=== PATIENT | female | born 1985 | race Caucasian/White ===

== ENCOUNTER 2017-04-11 07:46 | Day surgery (SDC) | payer BC ==
[~2017-04-11 07:46] MED LIST: Lactated Ringers 1,000 ML IV SCH; ceFAZolin 1 GM in Premix Bag 1 BAG IV ONE
[2017-04-11] MEDS ORDERED: fentaNYL 100 MCG/2 ML SDV ONE (08:32)
[2017-04-11] MEDS ORDERED: Propofol 200 MG/20 ML SDV ONE (08:32)
[2017-04-11] MEDS ORDERED: Lidocaine 2% 5 ML SDV ONE (08:32)
[2017-04-11] MEDS ORDERED: Midazolam 1 MG/ML 2 ML SDV ONE (08:32)
--- NOTE | 2017-04-11 09:04 | PCM.PREANE ---
Preanesthetic Assessment - Procedure Proposed Procedure: Cystoscopy with ureterocoele incision. - Anesthesia/Transfusion/Family Hx Anesthesia History: Prior Anesthesia Without Reaction Family History of Anesthesia Reaction: No Transfusion History: No Prior Transfusion(s) Intubation History: Unknown - Review of Systems General: No Symptoms Pulmonary: No Symptoms Cardiovascular: No Symptoms Gastrointestinal: No symptoms Neurological: No Symptoms Other: Reports: None - Physical Assessment O2 Sat by Pulse Oximetry: 99 Respiratory Rate: 16 Vital Signs: Last Vital Signs Temp 98.6 F 04/11/17 08:15 Pulse 58 L 04/11/17 08:15 Resp 16 04/11/17 08:15 BP 116/59 L 04/11/17 08:15 Pulse Ox 99 04/11/17 08:15 Height: 5 ft 9 in Weight: 173 lb ASA Class: 1 Mental Status: Alert & Oriented x3 Airway Class: Mallampati = 1 Dentition: Reports: Normal Dentition Thyro-Mental Finger Breadths: 3 Mouth Opening Finger Breadths: 3 ROM/Head Extension: Full Lungs: Clear to auscultation, Normal respiratory effort Cardiovascular: Regular Rate, Regular Rhythm, No Murmurs - Lab Values: Laboratory Last Values Urine HCG, Qual NEGATIVE (NEGATIVE) 04/11/17 07:48 - Allergies Allergies/Adverse Reactions: Allergies Allergy/AdvReac Type Severity Reaction Status Date / Time clomiphene [From Clomid] Allergy Hives Verified 04/10/17 15:53 - Blood Blood Available: No Product(s) Available: None - Anesthesia Plan Pre-Op Medication Ordered: None - Acknowledgements Anesthesia Type Planned: General Anesthesia (probable LMA) Pt an Appropriate Candidate for the Planned Anesthesia: Yes Alternatives and Risks of Anesthesia Discussed w Pt/Guardian: Yes Pt/Guardian Understands and Agrees with Anesthesia Plan: Yes PreAnesthesia Questionnaire HEENT History: Reports: None Cardiovascular History: Reports: None Respiratory History: Reports: None Gastrointestinal History: Reports: None Genitourinary History: Reports: None 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 [No Known Home Meds] 04/10/17 [History] - CURRENT (IN HOUSE) MEDS Current Meds: Current Medications Lactated Ringer's (Ringers, Lactated) 1,000 mls @ 100 mls/hr IV ASDIRECTED JAX Last Admin: 04/11/17 08:24 Dose: 100 mls/hr Discontinued Medications Fentanyl (Sublimaze) Confirm Administered Dose 100 mcg .ROUTE .STK-MED ONE Stop: 04/11/17 08:33 Cefazolin Sodium/Dextrose 1 gm (/ Premix) 50 mls @ 100 mls/hr IV ONETIME ONE Stop: 04/11/17 00:30 Lidocaine (Xylocaine-Mpf 2%) Confirm Administered Dose 5 ml .ROUTE .STK-MED ONE Stop: 04/11/17 08:33 Midazolam HCl (Versed 1 Mg/Ml) Confirm Administered Dose 2 mg .ROUTE .STK-MED ONE Stop: 04/11/17 08:33 Propofol (Diprivan 20 Ml) Confirm Administered Dose 200 mg .ROUTE .STK-MED ONE Stop: 04/11/17 08:33
[2017-04-11] MEDS ORDERED: Iopamidol 408 MG/ML 50 ML SDV ONE (09:30)
[2017-04-11] MEDS ORDERED: ceFAZolin 1 GM Vial ONE (09:43)
[2017-04-11] MEDS ORDERED: Sodium Chloride 0.9% 20 ML ONE (09:43)
[2017-04-11] MEDS ORDERED: fentaNYL 100 MCG/2 ML SDV IVPUSH PRN (09:46)
[2017-04-11] MEDS ORDERED: Ketorolac 30 MG/ML SDV ONE (10:11)
[2017-04-11] MEDS ORDERED: Ondansetron 4 MG/2 ML SDV ONE (10:11)
--- NOTE | 2017-04-11 10:47 | PCM.POSTAN ---
POST ANESTHESIA ASSESSMENT - MENTAL STATUS Mental Status: alert, oriented - RESPIRATORY Respiratory Status: respiratory rate WNL, airway patent, O2 saturation stable - CARDIOVASCULAR CV Status: pulse rate WNL, blood pressure stable - GASTROINTESTINAL GI Status: no symptoms - PAIN Pain Score: 0 - POST OP HYDRATION Hydration Status: adequate & stable
[2017-04-11 11:39] VITALS: BP 109/59
--- NOTE | 2017-04-11 11:54 | PCM48HPAN ---
Post Anesthesia Note - EVALUATION WITHIN 48HRS OF ANESTHETIC Vital Signs in Normal Range: Yes Patient Participated in Evaluation: Yes Respiratory Function Stable: Yes Airway Patent: Yes Cardiovascular Function Stable: Yes Hydration Status Stable: Yes Pain Control Satisfactory: Yes Nausea and Vomiting Control Satisfactory: Yes Mental Status Recovered: Yes
--- NOTE | 2017-04-11 12:13 | OR ---
SURGEON: Fei Aponte M.D. DATE OF PROCEDURE: 04/11/2017 PREOPERATIVE DIAGNOSES: Left hydroureter, hydronephrosis, and a large ureterocele. POSTOPERATIVE DIAGNOSES: Left hydroureter, hydronephrosis, and a large ureterocele. OPERATION: Cystoscopy and ureteral meatotomy. DESCRIPTION OF PROCEDURE: The patient was given general anesthesia, placed in dorsal lithotomy position, prepped and draped in sterile drapes. Cystourethroscopy was done, showed a large collapsable ureterocele on the left with a very narrow pinpoint opening. The resectoscope was used to cut the opening and make it larger. The bleeding points were fulgurated. At the end, the opening appeared quite adequate. No bleeding. The bladder was emptied and the patient was moved to recovery room in good condition. PLAN: I will see her again in 3-[address] scan without contrast. GEORGETTE / KATHIA /[id number]
== END 2017-04-11 11:54 | disposition home or self-care (01) ==
LOC: MW.SDS 07:46
PROVIDERS: ATTEND Urology
DX: N28.89 Other specified disorders of kidney and ureter (principal); N13.30 Unspecified hydronephrosis; Z98.890 Other specified postprocedural states
CPT/HCPCS: 52290; 81025; C1769; J0690; J1885; J2250; J2405; J3010; J7120; 00910; J2704; Q9966

== ENCOUNTER 2018-12-21 17:05 | Inpatient (IN) | payer BC ==
[2018-12-21] MEDS ORDERED: Ampicillin 2 GM in Sodium Chloride 0.9% 100 ML IV ONE (22:00)
[2018-12-21] MEDS ORDERED: Water For Irrigation,Sterile 1,000 ML Container IRR PRN (22:28)
[2018-12-21] MEDS ORDERED: Sodium Chloride 0.9% 10 ML SDV IV PRN (22:28)
[2018-12-21] MEDS ORDERED: Sodium Chloride 0.9% 10 ML Syringe FLUSH PRN (22:28)
[2018-12-21] MEDS ORDERED: Ondansetron 4 MG/2 ML SDV IV PRN (22:28)
[2018-12-21] MEDS ORDERED: Methylergonovine 0.2 MG/1 ML Amp IM PRN (22:28)
[2018-12-21] MEDS ORDERED: Carboprost Tromethamine 250 MCG/1 ML Amp IM PRN (22:28)
[2018-12-21] MEDS ORDERED: Tranexamic Acid 1,000 MG in Sodium Chloride 0.9% 100 ML IV PRN (22:28)
[2018-12-21] MEDS ORDERED: Misoprostol 200 MCG Tab PO PRN (22:28)
[2018-12-21] MEDS ORDERED: Butorphanol 1 MG/ML SDV IVPUSH PRN (22:28)
[2018-12-21] MEDS ORDERED: Sodium Chloride 0.9% 2.5 ML Syringe FLUSH PRN (22:28)
[2018-12-21] MEDS ORDERED: Lidocaine 1% 50 ML MDV INJECT PRN (22:28)
[2018-12-21] MEDS ORDERED: Nalbuphine 10 MG/1 ML Vial IVPUSH PRN (22:28)
[2018-12-21] MEDS ORDERED: Oxytocin/0.9 % Sodium Chloride 30 UNIT/500 ML BAG IV SCH (22:30)
[2018-12-22] MEDS: Lactated Ringers 1,000 ML IV SCH ×3 (00:04→14:30)
[2018-12-22] MEDS ORDERED: Terbutaline 1 MG/ML SDV SUBCUT PRN (01:28)
[2018-12-22] MEDS ORDERED: Misoprostol 25 MCG (1/4 of 100 MCG) Tab VAG PRN ×2 (01:28)
[2018-12-22] MEDS ORDERED: Oxytocin/0.9 % Sodium Chloride 30 UNIT/500 ML BAG IV SCH (01:30)
[2018-12-22 02:06] LABS: CHLORIDE,CL 103 mmol/L (98-107); SODIUM,NA 135 mmol/L (136-145)
[2018-12-22] MEDS: Ampicillin 1 GM in Sodium Chloride 0.9% 50 ML IV SCH ×4 (04:27→14:06)
[2018-12-22] MEDS ORDERED: fentaNYL 100 MCG/2 ML SDV ONE (14:29)
[2018-12-22] MEDS ORDERED: Bupivacaine 0.25% 10 ML SDV ONE (14:30)
[2018-12-22] MEDS ORDERED: Lidocaine HCl/EPINEPHrine 5 ML IJ ONE (14:30)
--- NOTE | 2018-12-22 14:55 | PCM.PREANE ---
Preanesthetic Assessment - Anesthesia/Transfusion/Family Hx Anesthesia History: Prior Anesthesia Without Reaction Transfusion History: No Prior Transfusion(s) Intubation History: Unknown - Review of Systems Cardiovascular: Other (PIH Preeclampsia) - Physical Assessment Height: 1.75 m Weight: 95.254 kg - Lab Values: Laboratory Last Values WBC 7.01 K/uL (4.0-11.0) 12/21/18 22:52 RBC 4.49 M/uL (4.30-5.90) 12/21/18 22:52 Hgb 12.1 g/dL (12.0-16.0) 12/21/18 22:52 Hct 36.6 % (36.0-46.0) 12/21/18 22:52 MCV 81.5 fL (80.0-98.0) 12/21/18 22:52 MCH 26.9 pg (27.0-32.0) L 12/21/18 22:52 MCHC 33.1 g/dL (31.0-37.0) 12/21/18 22:52 RDW Std Deviation 39.2 fl (28.0-62.0) 12/21/18 22:52 RDW Coeff of Lavelle 13 % (11.0-15.0) 12/21/18 22:52 Plt Count 281 K/uL (150-400) 12/21/18 22:52 MPV 10.80 fL (7.40-12.00) 12/21/18 22:52 Nucleated RBC % 0.0 /100WBC 12/21/18 22:52 Nucleated RBCs # 0 K/uL 12/21/18 22:52 Sodium 135 mmol/L (136-145) L 12/22/18 01:40 Potassium 3.9 mmol/L (3.5-5.1) 12/22/18 01:40 Chloride 103 mmol/L (98-107) 12/22/18 01:40 Carbon Dioxide 19.3 mmol/L (21.0-32.0) L 12/22/18 01:40 BUN 12 mg/dL (7.0-18.0) 12/22/18 01:40 Creatinine 0.8 mg/dL (0.6-1.0) 12/22/18 01:40 Est Cr Clr Drug Dosing 104.53 mL/min 12/22/18 01:40 Estimated GFR (MDRD) > 60.0 ml/min 12/22/18 01:40 Glucose 81 mg/dL (74-106) 12/22/18 01:40 Uric Acid 7.1 mg/dL (2.6-7.2) 12/22/18 01:40 Calcium 8.6 mg/dL (8.5-10.1) 12/22/18 01:40 Total Bilirubin 0.3 mg/dL (0.2-1.0) 12/22/18 01:40 AST 17 IU/L (15-37) 12/22/18 01:40 ALT 17 IU/L (14-63) 12/22/18 01:40 Alkaline Phosphatase 180 U/L (46-116) H 12/22/18 01:40 Total Protein 6.4 g/dL (6.4-8.2) 12/22/18 01:40 Albumin 2.4 g/dL (3.4-5.0) L 12/22/18 01:40 Globulin 4.0 g/dL (2.6-4.0) 12/22/18 01:40 Albumin/Globulin Ratio 0.6 (0.9-1.6) L 12/22/18 01:40 Blood Type O NEGATIVE 12/21/18 22:52 Antibody Screen NEGATIVE 12/21/18 22:52 - Allergies Allergies/Adverse Reactions: Allergies Allergy/AdvReac Type Severity Reaction Status Date / Time clomiphene [From Clomid] Allergy Hives Verified 04/10/17 15:53 - Acknowledgements Anesthesia Type Planned: Epidural Pt an Appropriate Candidate for the Planned Anesthesia: Yes Alternatives and Risks of Anesthesia Discussed w Pt/Guardian: Yes Pt/Guardian Understands and Agrees with Anesthesia Plan: Yes PreAnesthesia Questionnaire HEENT History: Reports: None Cardiovascular History: Reports: None Respiratory History: Reports: None Gastrointestinal History: Reports: None Genitourinary History: Reports: Pyelonephritis, UTI, Recurrent 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 OB/BYN History: infirtility Musculoskeletal History: Reports: None Neurological History: Reports: None Psychiatric History: Reports: None Endocrine/Metabolic History: Reports: None Hematologic History: Reports: None Oncologic (Cancer) History: Reports: None Dermatologic History: Reports: None - Past Surgical History Head Surgeries/Procedures: Reports: None Female Surgical History: Reports: Other (See Below) Other Female Surgeries/Procedures: Laparoscopy for removal of ovarian cyst Musculoskeletal Surgical History: Reports: None - SUBSTANCE USE Smoking Status *Q: Never Smoker Tobacco Use Within Last Twelve Months: No Recreational Drug Use History: No - HOME MEDS Home Medications: Home Meds . [No Known Home Meds] 04/10/17 [History] - CURRENT (IN HOUSE) MEDS Current Meds: Current Medications Butorphanol Tartrate (Stadol) 1 mg IVPUSH Q1H PRN PRN Reason: Pain Carboprost Tromethamine (Hemabate Ds) 250 mcg IM ASDIRECTED PRN PRN Reason: Post Hemorrhage Lactated Ringer's (Ringers, Lactated) 1,000 mls @ 150 mls/hr IV ASDIRECTED JAX Last Admin: 12/22/18 14:30 Dose: 999 mls/hr Oxytocin/Sodium Chloride (Oxytocin 30 Unit/500 Ml-Ns) 30 unit in 500 mls @ 999 mls/hr IV TITRATE JAX Tranexamic Acid 1,000 mg/ (Sodium Chloride) 110 mls @ 660 mls/hr IV ONETIME PRN PRN Reason: Bleeding Ampicillin Sodium 1 gm/ Sodium (Chloride) 50 mls @ 100 mls/hr IV Q4H JAX Last Admin: 12/22/18 14:06 Dose: 100 mls/hr Oxytocin/Sodium Chloride (Oxytocin 30 Unit/500 Ml-Ns) 30 unit in 500 mls @ 2 mls/hr IV TITRATE JAX; Protocol Last Titration: 12/22/18 13:36 Dose: 6 munits/min, 6 mls/hr Lidocaine HCl (Xylocaine 1%) 50 ml INJECT ONETIME PRN PRN Reason: Laceration repair Methylergonovine Maleate (Methergine) 0.2 mg IM ASDIRECTED PRN PRN Reason: Post Hemorrhage Misoprostol (Cytotec) 200 mcg PO ONETIME PRN PRN Reason: Post Hemorrhage Misoprostol (Cytotec) 25 mcg VAG ONETIME PRN PRN Reason: Cervical Ripening Last Admin: 12/22/18 01:47 Dose: 25 mcg Misoprostol (Cytotec) 25 mcg VAG Q6H PRN PRN Reason: Cervical Ripening Last Admin: 12/22/18 08:15 Dose: 25 mcg Nalbuphine HCl (Nubain) 10 mg IVPUSH Q1H PRN PRN Reason: Pain (severe 7-10) Ondansetron HCl (Zofran) 4 mg IV Q4H PRN PRN Reason: Nausea/Vomiting Sodium Chloride (Saline Flush) 10 ml FLUSH ASDIRECTED PRN PRN Reason: Keep Vein Open Sodium Chloride (Saline Flush) 2.5 ml FLUSH ASDIRECTED PRN PRN Reason: Keep Vein Open Sodium Chloride (Normal Saline) 10 ml IV ASDIRECTED PRN PRN Reason: IV Use Sterile Water (Sterile Water For Irrigation) 1,000 ml IRR ASDIRECTED PRN PRN Reason: delivery Terbutaline Sulfate (Brethine) 0.25 mg SUBCUT ASDIRECTED PRN PRN Reason: Tacysystole Discontinued Medications Bupivacaine HCl (Sensorcaine-Mpf 0.25%) Confirm Administered Dose 10 ml .ROUTE .STK-MED ONE Stop: 12/22/18 14:31 Fentanyl (Sublimaze) Confirm Administered Dose 100 mcg .ROUTE .STK-MED ONE Stop: 12/22/18 14:30 Ampicillin Sodium 2 gm/ Sodium (Chloride) 100 mls @ 200 mls/hr IV ONETIME ONE Stop: 12/21/18 22:29 Last Admin: 12/22/18 00:06 Dose: 200 mls/hr Fentanyl/Bupivacaine HCl (Tmrnvgts-Xrqty-Mi 2 Mcg/Ml-0.125%) Confirm Administered Dose 100 mls @ as directed .ROUTE .STK-MED ONE Stop: 12/22/18 14:31 Lidocaine/Epinephrine (Lidocaine 1.5%-Epi 1:200,000) Confirm Administered Dose 5 ml IJ .STK-MED ONE Stop: 12/22/18 14:31
[2018-12-22] MEDS ORDERED: Acetaminophen 500 MG Tab PO PRN (17:05)
[2018-12-22] MEDS ORDERED: oxyCODONE 5 MG Tab PO PRN (17:05)
[2018-12-22] MEDS ORDERED: Ibuprofen 400 MG Tab PO PRN (17:05)
[2018-12-22] MEDS ORDERED: Bisacodyl 10 MG Supp RECTAL PRN (17:05)
[2018-12-22] MEDS ORDERED: Lanolin 100% Cream 7 GM Tube TOP PRN (17:05)
[2018-12-22] MEDS ORDERED: Witch Hazel Medicated Pads 40/Jar TOP PRN (17:05)
[2018-12-22] MEDS ORDERED: Benzocaine/Menthol 20%-0.5% Spray 78 GM Cannister TOP PRN (17:05)
--- NOTE | 2018-12-22 17:18 | PCM48HPAN ---
Post Anesthesia Note - EVALUATION WITHIN 48HRS OF ANESTHETIC Vital Signs in Normal Range: Yes Patient Participated in Evaluation: Yes Respiratory Function Stable: Yes Airway Patent: Yes Cardiovascular Function Stable: Yes Hydration Status Stable: Yes Pain Control Satisfactory: Yes Nausea and Vomiting Control Satisfactory: Yes Mental Status Recovered: Yes - COMMENTS/OBSERVATIONS Free Text/Narrative:: Patient comfortable at this time. No signs or symptoms of symptoms related problems.
[2018-12-22] MEDS: Acetaminophen 500 MG Tab PO PRN (19:31)
[2018-12-22] MEDS: Ibuprofen 800 MG Tab PO PRN (19:32)
[2018-12-23] MEDS: Acetaminophen 500 MG Tab PO PRN ×2 (05:06→13:14)
[2018-12-23] MEDS: Ibuprofen 800 MG Tab PO PRN ×2 (05:07→21:02)
--- NOTE | 2018-12-23 09:04 | PCM.PNPP ---
- General Info Date of Service: 12/23/18 (PPD#1, mild pre-e IOL. Hgb 8.9, pr feels well now, weak w standing yesterday.) Functional Status: Reports: Pain Controlled, Tolerating Diet, Ambulating, Urinating - Review of Systems General: Reports: Weakness (Weak and dizzy with ambulating at times, improving.) , Fatigue HEENT: Reports: No Symptoms Pulmonary: Reports: No Symptoms Cardiovascular: Reports: No Symptoms Gastrointestinal: Reports: No Symptoms Genitourinary: Reports: No Symptoms - General Info Date of Service: 12/23/18 - Patient Data Vital Signs - Most Recent: Last Vital Signs Temp 36.8 C 12/23/18 07:20 Pulse 80 12/23/18 07:20 Resp 18 12/23/18 07:20 BP 120/74 12/23/18 07:20 Pulse Ox 100 12/23/18 07:20 Weight - Most Recent: 95.254 kg Lab Results - Last 24 Hours: Laboratory Results - last 24 hr 12/22/18 12/23/18 Range/Units 17:11 05:42 Hgb 8.9 L (12.0-16.0) g/dL Hct 27.3 L (36.0-46.0) % Screen NEGATIVE (NEGATIVE) RhIG Candidate? YES Rhogam Indicated YES, BABY RH POS H Med Orders - Current: Current Medications Acetaminophen (Tylenol Extra Strength) 500 mg PO Q4H PRN PRN Reason: Pain Acetaminophen (Tylenol Extra Strength) 1,000 mg PO Q4H PRN PRN Reason: Pain Last Admin: 12/23/18 05:06 Dose: 1,000 mg Benzocaine/Menthol (Dermoplast Pain Relief 20%-0.5% [place]) 78 gm TOP ASDIRECTED PRN PRN Reason: Perineal Comfort Measure Bisacodyl (Dulcolax) 10 mg RECTAL ONETIME PRN PRN Reason: Constipation Docusate Sodium (Colace) 100 mg PO BID PRN PRN Reason: Constipation Emollient Ointment (Lansinoh Hpa) 0 gm TOP ASDIRECTED PRN PRN Reason: Sore Nipples Ibuprofen (Motrin) 400 mg PO Q4H PRN PRN Reason: Pain Ibuprofen (Motrin) 800 mg PO Q6H PRN PRN Reason: Pain Last Admin: 12/23/18 05:07 Dose: 800 mg Oxycodone HCl (Oxycodone) 5 mg PO Q2H PRN PRN Reason: Pain Witch Lavinia (Tucks) 1 pad TOP ASDIRECTED PRN PRN Reason: comfort care Discontinued Medications Bupivacaine HCl (Sensorcaine-Mpf 0.25%) Confirm Administered Dose 10 ml .ROUTE .NovaShunt-MED ONE Stop: 12/22/18 14:31 Butorphanol Tartrate (Stadol) 1 mg IVPUSH Q1H PRN PRN Reason: Pain Carboprost Tromethamine (Hemabate Ds) 250 mcg IM ASDIRECTED PRN PRN Reason: Post Hemorrhage Fentanyl (Sublimaze) Confirm Administered Dose 100 mcg .ROUTE .NovaShunt-MED ONE Stop: 12/22/18 14:30 Ampicillin Sodium 2 gm/ Sodium (Chloride) 100 mls @ 200 mls/hr IV ONETIME ONE Stop: 12/21/18 22:29 Last Admin: 12/22/18 00:06 Dose: 200 mls/hr Lactated Ringer's (Ringers, Lactated) 1,000 mls @ 150 mls/hr IV ASDIRECTED JAX Last Admin: 12/22/18 14:30 Dose: 999 mls/hr Oxytocin/Sodium Chloride (Oxytocin 30 Unit/500 Ml-Ns) 30 unit in 500 mls @ 999 mls/hr IV TITRATE JAX Tranexamic Acid 1,000 mg/ (Sodium Chloride) 110 mls @ 660 mls/hr IV ONETIME PRN PRN Reason: Bleeding Ampicillin Sodium 1 gm/ Sodium (Chloride) 50 mls @ 100 mls/hr IV Q4H JAX Last Admin: 12/22/18 14:06 Dose: 100 mls/hr Oxytocin/Sodium Chloride (Oxytocin 30 Unit/500 Ml-Ns) 30 unit in 500 mls @ 2 mls/hr IV TITRATE JAX; Protocol Last Titration: 12/22/18 16:12 Dose: 500 munits/min, 500 mls/hr Fentanyl/Bupivacaine HCl (Fiybxofs-Ojtmq-Oa 2 Mcg/Ml-0.125%) Confirm Administered Dose 100 mls @ as directed .ROUTE .NovaShunt-Somo ONE Stop: 12/22/18 14:31 Lidocaine HCl (Xylocaine 1%) 50 ml INJECT ONETIME PRN PRN Reason: Laceration repair Lidocaine/Epinephrine (Lidocaine 1.5%-Epi 1:200,000) Confirm Administered Dose 5 ml IJ .STK-MED ONE Stop: 12/22/18 14:31 Methylergonovine Maleate (Methergine) 0.2 mg IM ASDIRECTED PRN PRN Reason: Post Hemorrhage Misoprostol (Cytotec) 200 mcg PO ONETIME PRN PRN Reason: Post Hemorrhage Misoprostol (Cytotec) 25 mcg VAG ONETIME PRN PRN Reason: Cervical Ripening Last Admin: 12/22/18 01:47 Dose: 25 mcg Misoprostol (Cytotec) 25 mcg VAG Q6H PRN PRN Reason: Cervical Ripening Last Admin: 12/22/18 08:15 Dose: 25 mcg Nalbuphine HCl (Nubain) 10 mg IVPUSH Q1H PRN PRN Reason: Pain (severe 7-10) Ondansetron HCl (Zofran) 4 mg IV Q4H PRN PRN Reason: Nausea/Vomiting Sodium Chloride (Saline Flush) 10 ml FLUSH ASDIRECTED PRN PRN Reason: Keep Vein Open Sodium Chloride (Saline Flush) 2.5 ml FLUSH ASDIRECTED PRN PRN Reason: Keep Vein Open Sodium Chloride (Normal Saline) 10 ml IV ASDIRECTED PRN PRN Reason: IV Use Sterile Water (Sterile Water For Irrigation) 1,000 ml IRR ASDIRECTED PRN PRN Reason: delivery Terbutaline Sulfate (Brethine) 0.25 mg SUBCUT ASDIRECTED PRN PRN Reason: Tacysystole - Interaction Infant Disposition, : in Room with Family Interaction: Not Applicable Feeding: Continues to Breastfeed Support Person: - Recovery Exam Fundal Tone: Firm Fundal Level: At Umbilicus Fundal Placement: Midline Lochia Amount: Small, Moderate (clot overnight, current pap with mild lochia-- on for several hours.) Lochia Color: Rubra/Red Perineum Description: Intact, Minimal Bruising/Swelling (no hematoma of labia, no hematoma of pelvic sidewall.) Bladder Status: Nonpalpable Urinary Elimination: Voided - Exam General: Alert, Oriented, Cooperative, No Acute Distress Neck: Supple Lungs: Other (Breathing comfortably) GI/Abdominal Exam: Soft, Other (Uterus firm at umb) Extremities: Normal Inspection Skin: Warm, Dry, Intact Wound/Incisions: Healing Well (Obstetric lacerations repaired.) Psy/Mental Status: Alert, Normal Affect, Normal Mood - Problem List & Annotations (1) Vaginal delivery SNOMED Code(s): 891599132 Code(s): O80 - ENCOUNTER FOR FULL-TERM UNCOMPLICATED DELIVERY Status: Acute Current Visit: Yes (2) Pre-eclampsia SNOMED Code(s): 397191344 Code(s): O14.90 - UNSPECIFIED PRE-ECLAMPSIA, UNSPECIFIED TRIMESTER Status: Acute Current Visit: Yes (3) Anemia due to blood loss, acute SNOMED Code(s): 735927444 Code(s): D62 - ACUTE POSTHEMORRHAGIC ANEMIA Status: Acute Current Visit: Yes - Problem List Review Problem List Initiated/Reviewed/Updated: Yes - My Orders Last 24 Hours: My Active Orders 12/22/18 17:05 Patient Status [ADT] Routine May Shower [RC] ASDIRECTED Up ad [place] [RC] ASDIRECTED Vital Signs [RC] PER UNIT ROUTINE Acetaminophen [Tylenol Extra Strength] 1,000 mg PO Q4H PRN Acetaminophen [Tylenol Extra Strength] 500 mg PO Q4H PRN Benzocaine/Menthol [Dermoplast Pain Relief 20%-0.5% [place]] 78 gm TOP ASDIRECTED PRN Bisacodyl [Dulcolax] 10 mg RECTAL ONETIME PRN Docusate Sodium [Colace] 100 mg PO BID PRN Ibuprofen [Motrin] 400 mg PO Q4H PRN Ibuprofen [Motrin] 800 mg PO Q6H PRN Lanolin [Lansinoh HPA] See Dose Instructions TOP ASDIRECTED PRN Witch Lavinia [Tucks] 1 pad TOP ASDIRECTED PRN oxyCODONE 5 mg PO Q2H PRN Assess Lochia [WOMSER] Per Unit Routine Assess Uterine Involution [WOMSER] Per Unit Routine Peripheral IV Discontinue [OM.PC] Routine Resuscitation Status Routine 12/22/18 17:11 SCREEN [BBK] Routine RH IMMUNE GLOBULIN [BBK] Routine RHOGAM, [RHIG WORKUP, ] [BBK] Routine 12/22/18 Dinner Regular Diet [DIET] - Assessment Assessment:: Doing well PPD#. Low HGB, and weakness/dizziness improving. VSS. No hematoma. Encouraged hydration/eating, move slowly, iron. - Plan Plan:: Continue PP cares. Transfusion discussed/not recommended. Pt is not requesting transfusion. Anemia precautions fully discussed.
[2018-12-23] MEDS: Docusate Sodium 100 MG Cap PO PRN (21:02)
[2018-12-23] MEDS: Ferrous Sulfate 325 MG Tab PO SCH (21:14)
[2018-12-24 07:36] VITALS: BP 112/63
--- NOTE | 2018-12-24 08:05 | PCM.PNPP ---
<Sravanthi Gramajo - Last Filed: 12/24/18 08:03> - General Info Date of Service: 12/24/18 Functional Status: Reports: Pain Controlled, Tolerating Diet, Ambulating, Urinating - Review of Systems General: Denies: Fever, Weakness, Fatigue Pulmonary: Denies: Shortness of Breath, Pleuritic Chest Pain, Cough Cardiovascular: Denies: Chest Pain, Palpitations, Dyspnea on Exertion Gastrointestinal: Denies: Abdominal Pain Genitourinary: Denies: Dysuria - General Info Date of Service: 12/24/18 - Patient Data Vital Signs - Most Recent: Last Vital Signs Temp 36.7 C 12/24/18 07:35 Pulse 79 12/24/18 07:35 Resp 16 12/24/18 07:35 BP 112/63 12/24/18 07:35 Pulse Ox 96 12/24/18 07:35 Weight - Most Recent: 95.254 kg I&O - Last 24 Hours: Intake & Output 12/23/18 12/24/18 12/24/18 22:59 06:59 14:59 Intake Total 2 Balance 2 Lab Results - Last 24 Hours: Laboratory Results - last 24 hr 12/22/18 Range/Units 17:11 Screen NEGATIVE (NEGATIVE) RhIG Candidate? YES Rhogam Indicated YES, BABY RH POS H Med Orders - Current: Current Medications Acetaminophen (Tylenol Extra Strength) 500 mg PO Q4H PRN PRN Reason: Pain Acetaminophen (Tylenol Extra Strength) 1,000 mg PO Q4H PRN PRN Reason: Pain Last Admin: 12/23/18 13:14 Dose: 1,000 mg Benzocaine/Menthol (Dermoplast Pain Relief 20%-0.5% [place]) 78 gm TOP ASDIRECTED PRN PRN Reason: Perineal Comfort Measure Bisacodyl (Dulcolax) 10 mg RECTAL ONETIME PRN PRN Reason: Constipation Docusate Sodium (Colace) 100 mg PO BID PRN PRN Reason: Constipation Last Admin: 12/23/18 21:02 Dose: 100 mg Emollient Ointment (Lansinoh Hpa) 0 gm TOP ASDIRECTED PRN PRN Reason: Sore Nipples Ferrous Sulfate (Ferrous Sulfate) 325 mg PO BIDMEALS [facility] Last Admin: 12/23/18 21:14 Dose: 325 mg Ibuprofen (Motrin) 400 mg PO Q4H PRN PRN Reason: Pain Ibuprofen (Motrin) 800 mg PO Q6H PRN PRN Reason: Pain Last Admin: 12/23/18 21:02 Dose: 800 mg Oxycodone HCl (Oxycodone) 5 mg PO Q2H PRN PRN Reason: Pain Witch Lavinia (Tucks) 1 pad TOP ASDIRECTED PRN PRN Reason: comfort care Discontinued Medications Bupivacaine HCl (Sensorcaine-Mpf 0.25%) Confirm Administered Dose 10 ml .ROUTE .STK-MED ONE Stop: 12/22/18 14:31 Butorphanol Tartrate (Stadol) 1 mg IVPUSH Q1H PRN PRN Reason: Pain Carboprost Tromethamine (Hemabate Ds) 250 mcg IM ASDIRECTED PRN PRN Reason: Post Hemorrhage Fentanyl (Sublimaze) Confirm Administered Dose 100 mcg .ROUTE .STK-MED ONE Stop: 12/22/18 14:30 Ampicillin Sodium 2 gm/ Sodium (Chloride) 100 mls @ 200 mls/hr IV ONETIME ONE Stop: 12/21/18 22:29 Last Admin: 12/22/18 00:06 Dose: 200 mls/hr Lactated Ringer's (Ringers, Lactated) 1,000 mls @ 150 mls/hr IV ASDIRECTED JAX Last Admin: 12/22/18 14:30 Dose: 999 mls/hr Oxytocin/Sodium Chloride (Oxytocin 30 Unit/500 Ml-Ns) 30 unit in 500 mls @ 999 mls/hr IV TITRATE JAX Tranexamic Acid 1,000 mg/ (Sodium Chloride) 110 mls @ 660 mls/hr IV ONETIME PRN PRN Reason: Bleeding Ampicillin Sodium 1 gm/ Sodium (Chloride) 50 mls @ 100 mls/hr IV Q4H JAX Last Admin: 12/22/18 14:06 Dose: 100 mls/hr Oxytocin/Sodium Chloride (Oxytocin 30 Unit/500 Ml-Ns) 30 unit in 500 mls @ 2 mls/hr IV TITRATE JAX; Protocol Last Titration: 12/22/18 16:12 Dose: 500 munits/min, 500 mls/hr Fentanyl/Bupivacaine HCl (Srgrxgew-Naujm-Qs 2 Mcg/Ml-0.125%) Confirm Administered Dose 100 mls @ as directed .ROUTE .STK-MED ONE Stop: 12/22/18 14:31 Lidocaine HCl (Xylocaine 1%) 50 ml INJECT ONETIME PRN PRN Reason: Laceration repair Lidocaine/Epinephrine (Lidocaine 1.5%-Epi 1:200,000) Confirm Administered Dose 5 ml IJ .STK-MED ONE Stop: 12/22/18 14:31 Methylergonovine Maleate (Methergine) 0.2 mg IM ASDIRECTED PRN PRN Reason: Post Hemorrhage Misoprostol (Cytotec) 200 mcg PO ONETIME PRN PRN Reason: Post Hemorrhage Misoprostol (Cytotec) 25 mcg VAG ONETIME PRN PRN Reason: Cervical Ripening Last Admin: 12/22/18 01:47 Dose: 25 mcg Misoprostol (Cytotec) 25 mcg VAG Q6H PRN PRN Reason: Cervical Ripening Last Admin: 12/22/18 08:15 Dose: 25 mcg Nalbuphine HCl (Nubain) 10 mg IVPUSH Q1H PRN PRN Reason: Pain (severe 7-10) Ondansetron HCl (Zofran) 4 mg IV Q4H PRN PRN Reason: Nausea/Vomiting Sodium Chloride (Saline Flush) 10 ml FLUSH ASDIRECTED PRN PRN Reason: Keep Vein Open Sodium Chloride (Saline Flush) 2.5 ml FLUSH ASDIRECTED PRN PRN Reason: Keep Vein Open Sodium Chloride (Normal Saline) 10 ml IV ASDIRECTED PRN PRN Reason: IV Use Sterile Water (Sterile Water For Irrigation) 1,000 ml IRR ASDIRECTED PRN PRN Reason: delivery Terbutaline Sulfate (Brethine) 0.25 mg SUBCUT ASDIRECTED PRN PRN Reason: Tacysystole - Infant Interaction Infant Disposition, : in Room with Family Infant Interaction: Not Applicable Infant Feeding: Continues to Breastfeed Support Person: - Recovery Exam Fundal Tone: Firm Fundal Level: At Umbilicus Fundal Placement: Midline Lochia Amount: Scant Lochia Color: Rubra/Red Perineum Description: Other (see below) Other Perinuem Description: 2nd deg laceration Bladder Status: Nonpalpable, Voiding Urinary Elimination: Voided - Exam General: Alert, Oriented Neck: Supple Lungs: Clear to Auscultation, Normal Respiratory Effort Cardiovascular: Regular Rate, Regular Rhythm GI/Abdominal Exam: Normal Bowel Sounds, Soft, Non-Tender, No Distention Extremities: Normal Inspection, Normal Range of Motion, Non-Tender, No Pedal Edema, Normal Capillary Refill Skin: Warm, Dry, Intact - Problem List & Annotations (1) Vaginal delivery SNOMED Code(s): 435409660 Code(s): O80 - ENCOUNTER FOR FULL-TERM UNCOMPLICATED DELIVERY Status: Acute Current Visit: Yes - Problem List Review Problem List Initiated/Reviewed/Updated: Yes - Assessment Assessment:: PPD #2 s/p . Started on iron for anemia, vitals stable. Discharge home today. - Plan Plan:: Discharge instructions reviewed. Can use OTC ibuprofen/tylenol as needed for pain. Pelvic rest for 6 weeks. Instructed patient to call if she develops fever greater than 101 or bleeding through a large pad an hour. Continue iron supplementation. F/U with [facility] in 6 weeks. <Yessica Fitzpatrick - Last Filed: 12/24/18 09:47> - Patient Data Vital Signs - Most Recent: Last Vital Signs Temp 36.7 C 12/24/18 07:35 Pulse 79 12/24/18 07:35 Resp 16 12/24/18 07:35 BP 112/63 12/24/18 07:35 Pulse Ox 96 12/24/18 07:35 I&O - Last 24 Hours: Intake & Output 12/23/18 12/24/18 12/24/18 22:59 06:59 14:59 Intake Total 2 Balance 2 Lab Results - Last 24 Hours: Laboratory Results - last 24 hr 12/22/18 Range/Units 17:11 Screen NEGATIVE (NEGATIVE) RhIG Candidate? YES Rhogam Indicated YES, BABY RH POS H Med Orders - Current: Current Medications Acetaminophen (Tylenol Extra Strength) 500 mg PO Q4H PRN PRN Reason: Pain Acetaminophen (Tylenol Extra Strength) 1,000 mg PO Q4H PRN PRN Reason: Pain Last Admin: 12/23/18 13:14 Dose: 1,000 mg Benzocaine/Menthol (Dermoplast Pain Relief 20%-0.5% [place]) 78 gm TOP ASDIRECTED PRN PRN Reason: Perineal Comfort Measure Bisacodyl (Dulcolax) 10 mg RECTAL ONETIME PRN PRN Reason: Constipation Docusate Sodium (Colace) 100 mg PO BID PRN PRN Reason: Constipation Last Admin: 12/24/18 08:18 Dose: 100 mg Emollient Ointment (Lansinoh Hpa) 0 gm TOP ASDIRECTED PRN PRN Reason: Sore Nipples Ferrous Sulfate (Ferrous Sulfate) 325 mg PO BIDMEALS [facility] Last Admin: 12/24/18 08:18 Dose: 325 mg Ibuprofen (Motrin) 400 mg PO Q4H PRN PRN Reason: Pain Ibuprofen (Motrin) 800 mg PO Q6H PRN PRN Reason: Pain Last Admin: 12/23/18 21:02 Dose: 800 mg Oxycodone HCl (Oxycodone) 5 mg PO Q2H PRN PRN Reason: Pain Witch Lavinia (Tucks) 1 pad TOP ASDIRECTED PRN PRN Reason: comfort care Discontinued Medications Bupivacaine HCl (Sensorcaine-Mpf 0.25%) Confirm Administered Dose 10 ml .ROUTE .STK-MED ONE Stop: 12/22/18 14:31 Butorphanol Tartrate (Stadol) 1 mg IVPUSH Q1H PRN PRN Reason: Pain Carboprost Tromethamine (Hemabate Ds) 250 mcg IM ASDIRECTED PRN PRN Reason: Post Hemorrhage Fentanyl (Sublimaze) Confirm Administered Dose 100 mcg .ROUTE .STK-MED ONE Stop: 12/22/18 14:30 Ampicillin Sodium 2 gm/ Sodium (Chloride) 100 mls @ 200 mls/hr IV ONETIME ONE Stop: 12/21/18 22:29 Last Admin: 12/22/18 00:06 Dose: 200 mls/hr Lactated Ringer's (Ringers, Lactated) 1,000 mls @ 150 mls/hr IV ASDIRECTED [facility] Last Admin: 12/22/18 14:30 Dose: 999 mls/hr Oxytocin/Sodium Chloride (Oxytocin 30 Unit/500 Ml-Ns) 30 unit in 500 mls @ 999 mls/hr IV TITRATE [facility] Tranexamic Acid 1,000 mg/ (Sodium Chloride) 110 mls @ 660 mls/hr IV ONETIME PRN PRN Reason: Bleeding Ampicillin Sodium 1 gm/ Sodium (Chloride) 50 mls @ 100 mls/hr IV Q4H [facility] Last Admin: 12/22/18 14:06 Dose: 100 mls/hr Oxytocin/Sodium Chloride (Oxytocin 30 Unit/500 Ml-Ns) 30 unit in 500 mls @ 2 mls/hr IV TITRATE JAX; Protocol Last Titration: 12/22/18 16:12 Dose: 500 munits/min, 500 mls/hr Fentanyl/Bupivacaine HCl (Zvdokdgu-Bfztv-Re 2 Mcg/Ml-0.125%) Confirm Administered Dose 100 mls @ as directed .ROUTE .STK-MED ONE Stop: 12/22/18 14:31 Lidocaine HCl (Xylocaine 1%) 50 ml INJECT ONETIME PRN PRN Reason: Laceration repair Lidocaine/Epinephrine (Lidocaine 1.5%-Epi 1:200,000) Confirm Administered Dose 5 ml IJ .STK-MED ONE Stop: 12/22/18 14:31 Methylergonovine Maleate (Methergine) 0.2 mg IM ASDIRECTED PRN PRN Reason: Post Hemorrhage Misoprostol (Cytotec) 200 mcg PO ONETIME PRN PRN Reason: Post Hemorrhage Misoprostol (Cytotec) 25 mcg VAG ONETIME PRN PRN Reason: Cervical Ripening Last Admin: 12/22/18 01:47 Dose: 25 mcg Misoprostol (Cytotec) 25 mcg VAG Q6H PRN PRN Reason: Cervical Ripening Last Admin: 12/22/18 08:15 Dose: 25 mcg Nalbuphine HCl (Nubain) 10 mg IVPUSH Q1H PRN PRN Reason: Pain (severe 7-10) Ondansetron HCl (Zofran) 4 mg IV Q4H PRN PRN Reason: Nausea/Vomiting Sodium Chloride (Saline Flush) 10 ml FLUSH ASDIRECTED PRN PRN Reason: Keep Vein Open Sodium Chloride (Saline Flush) 2.5 ml FLUSH ASDIRECTED PRN PRN Reason: Keep Vein Open Sodium Chloride (Normal Saline) 10 ml IV ASDIRECTED PRN PRN Reason: IV Use Sterile Water (Sterile Water For Irrigation) 1,000 ml IRR ASDIRECTED PRN PRN Reason: delivery Terbutaline Sulfate (Brethine) 0.25 mg SUBCUT ASDIRECTED PRN PRN Reason: Tacysystole - Problem List Review Problem List Initiated/Reviewed/Updated: Yes - Assessment Assessment:: Patient was seen and examined by me and I agree with above.
[2018-12-24] MEDS: Ferrous Sulfate 325 MG Tab PO SCH (08:18)
[2018-12-24] MEDS: Docusate Sodium 100 MG Cap PO PRN (08:18)
[2018-12-24] MEDS: Ibuprofen 800 MG Tab PO PRN (12:09)
== END 2018-12-24 13:42 | disposition home or self-care (01) | DRG 560 ==
LOC: MW.OB 17:05 → INTOOBSV 22:05 → OBSVTOIN 12-22 17:05 → MW.OB 12-22 21:44
PROVIDERS: ADMIT Obstetrics & Gynecology; ATTEND Obstetrics & Gynecology
PROC: 00HU33Z Insertion of Infusion Device into Spinal Canal, Percutaneous Approach (ICD-10-PCS; 2018-12-21)
PROC: 3E0R3BZ Introduction of Anesthetic Agent into Spinal Canal, Percutaneous Approach (ICD-10-PCS; 2018-12-21)
PROC: 0UQGXZZ Repair Vagina, External Approach (ICD-10-PCS; principal; 2018-12-22)
PROC: 10E0XZZ Delivery of Products of Conception, External Approach (ICD-10-PCS; principal; 2018-12-22)
DX: O14.04 Mild to moderate pre-eclampsia, complicating childbirth (principal); O99.824 Streptococcus B carrier state complicating childbirth; Z3A.39 39 weeks gestation of pregnancy; Z37.0 Single live birth; O90.81 Anemia of the puerperium; D62 Acute posthemorrhagic anemia; O13.4 Gestational [pregnancy-induced] hypertension without significant proteinuria, complicating childbirth; Z88.8 Allergy status to other drugs, medicaments and biological substances; Z87.440 Personal history of urinary (tract) infections; O70.1 Second degree perineal laceration during delivery
CPT/HCPCS: 36415; 51702; 59025; 59409; 80053; 84550; 85014; 85018; 85027; 85460; 86850; 86900; 86901; A9270-GY; J0290; J2590; J2792; J3490; J7030; J7050; J7120